=== PATIENT | female | born 1965 | race Caucasian/White ===

== ENCOUNTER 2023-05-09 11:01 | Day surgery (SDC) | payer BC, SELFPAY ==
--- NOTE | 2023-05-03 07:14 | EKG12_ITS ---
Test Reason : PREOP Blood Pressure : / mmHG Vent. Rate : 076 BPM Atrial Rate : 076 BPM P-R Int : 136 ms QRS Dur : 054 ms QT Int : 386 ms P-R-T Axes : 023 003 036 degrees QTc Int : 434 ms Normal sinus rhythm Normal ECG Confirmed by GOLDEN DE DIOS MD ([id number]), book editor BONNIE MCNEILL ([id number]) on 05/05/2023 1:31:47 PM Referred By: Nash Parker Confirmed By:GOLDEN DE DIOS MD
[2023-05-03 08:54] LABS: Hematocrit 44.6 % (37-47); Hemoglobin 14.4 g/dL (12.0-15.0); Mean Corp Hgb Conc 32.3 g/dL (32-36); Mean Corpuscular Hgb 28.1 pg (27.0-32.0); Mean Corpuscular Volume 87.1 fL (81-99); Mean Platelet Vol. 10.1 fl (6.2-12.0); Platelet Count 290 K/mm3 (150-450); RBC Distribution Width CV 12.2 % (11.6-14.6); RBC Distribution Width SD 39.4 fl (35.1-43.9); Red Blood Count 5.12 M/mm3 (4.2-5.4); White Blood Count 6.1 K/mm3 (4.4-11.0)
[2023-05-03 09:25] LABS: Anion Gap 4 (5-15); BUN 11 mg/dL (7-18); Calcium,Total 9.1 mg/dL (8.5-10.1); Chloride 105 mmol/L (98-107); Creatinine, Serum 0.69 mg/dL (0.55-1.02); EST Glomerular Filtration Rate 93 mL/min (>60); Est Glom Filt Rate - Afr Amer 113 mL/min (>60); Glucose 118 mg/dL (74-106); Potassium 3.8 mmol/L (3.5-5.1); Sodium Level 138 mmol/L (136-145)
[2023-05-09] MEDS: Lactated Ringers 1,000 ML 15 ML IV (11:33)
[2023-05-09 11:34] VITALS: BP 144/90; PULSE 80; RESP 18; TEMP 37.1; O2SAT 96; BMI 33.5
[2023-05-09] MEDS: Clindamycin 600 MG/50 ML BAG 100 MG IV (12:36)
[2023-05-09] MEDS: Lidocaine 1% /Epi 1:100 (20ml) 20 ML Vial ×2 (13:00→13:14)
[2023-05-09] MEDS: Epinephrine (1 mg/ml) 1 MG/ML VIAL (13:09)
--- NOTE | 2023-05-09 13:31 | PCM.OPRPT ---
Report of Operation Date of Procedure: 05/09/23 Pre-Operative Diagnosis: Internal derangement right knee Post-Operative Diagnosis: Macerated, multilayered medial meniscal tear and diffuse Grade 3 patellar chondromalacia Surgery/Procedure Performed:: Diagnostic and operative arthroscopy with partial medial meniscectomy and chondroplasty of the patella right knee Description of Surgical Findings:: Report of Operation Date of Procedure: 05/09/23 Preoperative Diagnosis: Right knee, internal derangement Postoperative Diagnosis: Right knee, macerated, multilayer posterior horn medial meniscal tear; Grade 3 chondromalacia patella Operation: Diagnostic and operative arthroscopy of the right knee with arthroscopic partial medial meniscectomy and chondroplasty of the patella Surgeon: Dr Nash Parker DO Anesthesia: general Anesthesiologist: Abhay Seals M.D. Description of Procedure: With appropriate informed consent, the patient was taken to the operative suite. After induction of general and regional anesthesia and administration of the preoperative antibiotics, the well leg was fitted with PARI and SCDs and well padded. The right knee was placed into the arthroscopy leg rao, prepped and draped sterilely. The standard arthroscopy portals were pre-injected with 0.5% Marcaine with epinephrine. A lateral portal was established. The diagnostic arthroscopy was begun. The patellofemoral joint revealed diffuse Grade 3 chondromalacia of the undersurface of the patella The medial compartment was entered and the medial portal was established. A probe was utilized to probe the medial meniscus. There was a macerated, multilayered posterior horn medial meniscal tear. ACL and PCL were probed and intact. The lateral compartment was entered. There was no pathology. Subsequently, a partial [ medial ] meniscectomy was performed using a combination of straight and angled basket punches. The meniscotome was then utilized to remove the fragments of cartilage and then to smooth the remainder of the meniscus to a firm and stable rim. A shaver was used to perform a chondroplasty on the [patella ] to smooth the roughened surface cartilage and remove any delaminated cartilage. Thereafter, the arthroscopy instruments and fluid were removed. The portals were closed with interrupted sutures of 4-0 nylon followed by application of a sterile well-padded dressing and KADI wrap. The patient was extubated and transferred to the PACU in stable and satisfactory condition. Nash Parker DO Surgeon: Nash Parker Type of Anesthesia: General Anesthesiologist: Abhay Seals Drains: 0 Estimated Blood Loss (mL): 5 cc Fluids Replaced: 500 cc crystalloid Admit VTE Documentation VTE Present on Admission: No VTE Mechan Device Prophylaxis: SCD's and Thigh High PARI Hose VTE Pharm Prophylaxis ordered?: Yes
[2023-05-09 13:33] VITALS: BP 128/77; BP 144/90; PULSE 80; RESP 18; TEMP 36.3; O2SAT 98
[2023-05-09 13:59] VITALS: BP 124/76; BP 144/90; PULSE 81; RESP 18; O2SAT 94
[2023-05-09 14:00] VITALS: BP 122/96; BP 144/90; PULSE 84; RESP 18; TEMP 36.1; O2SAT 97
[2023-05-09 14:17] VITALS: BP 144/90
== END 2023-05-09 14:45 | disposition home or self-care (01) ==
LOC: SDC 11:05 → AC 11:15
PROVIDERS: PCP Internal Medicine; Referring Provider Orthopaedic Surgery; Visit Provider Orthopaedic Surgery
PROC: (CPT 29870; principal; 2023-05-09 12:45)
DX: M23.91 Unspecified internal derangement of right knee (principal); M22.40 Chondromalacia patellae, unspecified knee; Z87.891 Personal history of nicotine dependence; S83.231D Complex tear of medial meniscus, current injury, right knee, subsequent encounter; M17.11 Unilateral primary osteoarthritis, right knee; E66.9 Obesity, unspecified; R03.0 Elevated blood-pressure reading, without diagnosis of hypertension; Z68.33 Body mass index [BMI] 33.0-33.9, adult
CPT/HCPCS: 29881; 01400; 36415; 80048; 85027; 93005; J7120; J2405